=== PATIENT | male | born 1985 | race Caucasian/White ===

== ENCOUNTER 2019-05-31 02:53 | Inpatient (IN) | payer OTHER ==
[~2019-05-31] VITALS: Ht 175.3 cm; Wt 89.0 kg
[2019-05-31] MEDS ORDERED: ONDANSETRON ODT 4 MG ONE (03:13)
[2019-05-31] MEDS ORDERED: KETOROLAC 30 MG/1 ML ONE (03:13)
[2019-05-31 03:24] LABS: BASOPHILS # (AUTO) 0.01 x10^3/uL (0-0.1); BASOPHILS % (AUTO) 0 % (0-1); EOSINOPHILS # (AUTO) 0.11 x10^3/uL (0-0.4); EOSINOPHILS % (AUTO) 1 % (1-7); LYMPHOCYTES # (AUTO) 1.09 x10^3/uL (1-3.4); LYMPHOCYTES % (AUTO) 7 % (22-44); MD NO; MEAN CORPUSCULAR HEMOGLOBIN 31.7 pg (27.5-34.5); MEAN CORPUSCULAR HGB CONC 33.3 g/dL (33.2-36.2); MEAN CORPUSCULAR VOLUME 95.2 fL (81-97); MEAN PLATELET VOLUME 8.5 fL (7.4-10.4); MONOCYTES # (AUTO) 0.29 x10^3/uL (0.2-0.8); MONOCYTES % (AUTO) 2 % (2-9); NEUTROPHILS # (AUTO) 14.05 x10^3/uL (1.8-6.8); NEUTROPHILS % (AUTO) 90 % (42-75); PLATELET COUNT 198 x10^3/uL (130-400); RED BLOOD COUNT 4.85 x10^6/uL (4.38-5.82); RED CELL DISTRIBUTION WIDTH 12.9 % (9.4-14.8)
[2019-05-31] MEDS ORDERED: ONDANSETRON ODT 4 MG PO ONE (03:30)
[2019-05-31] MEDS ORDERED: KETOROLAC 30 MG/1 ML IM ONE (03:30)
[2019-05-31 03:36] LABS: ALANINE AMINOTRANSFERASE 32 U/L (12-78); ALBUMIN 4.4 g/dL (3.4-5.0); ANION GAP 9 mmol/L (5-15); CALCIUM 9.2 mg/dL (8.5-10.1); CHLORIDE 105 mmol/L (98-107); CREATININE 1.42 mg/dL (0.7-1.3)
[2019-05-31 03:39] LABS: ALKALINE PHOSPHATASE 64 U/L (45-117); BILIRUBIN,TOTAL 0.7 mg/dL (0.2-1.0); TOTAL PROTEIN 8.1 g/dL (6.4-8.2)
--- NOTE | 2019-05-31 04:53 | NUR ---
PT RESTING IN BED W/ OFFICERS AT BEDSIDE. SIDE RAILS UP X 2. PT STATES HE FEELS "MUCH BETTER." DISCUSSED W/ ED PROVIDER AND AWAITING POC
[2019-05-31] MEDS ORDERED: CEFTRIAXONE PMX 1GM/50ML 50 ML IV ONE (05:30)
[2019-05-31] MEDS ORDERED: METRONIDAZOLE PMX 500MG/100ML 100 ML IV ONE (05:30)
--- NOTE | 2019-05-31 05:32 | NUR ---
ED PROVIDER STATES NO NEED FOR BLOOD CULTURES PRIOR TO ABX.
[2019-05-31] MEDS ORDERED: METRONIDAZOLE PMX 500MG/100ML 100 ML ONE (05:33)
[2019-05-31] MEDS ORDERED: CEFTRIAXONE PMX 1GM/50ML 50 ML ONE (05:33)
--- NOTE | 2019-05-31 05:55 | NUR ---
UNSUCCESSFUL PIV TO RAC DRESSED W/ GAUZE AND TAPE. POSITIONAL IV INFUSING FIRST ROUND OF ABX AT THIS TIME.
--- NOTE | 2019-05-31 06:45 | NUR ---
GAVE REPORT TO BABAK ANDRADE AND AWAITING TRANSPORT TO THE FLOOR. Addendum: 05/31/19 at 0646 by MARCY MELISSA IN PROGRESS AT THIS TIME BY EMILY.
[2019-05-31] MEDS ORDERED: ONDANSETRON 2MG/ML, 2ML IVPush PRN (07:30)
[2019-05-31] MEDS ORDERED: CEFTRIAXONE PMX 2GM/50ML 50 ML IV SCH ×2 (07:30→17:30)
[2019-05-31] MEDS ORDERED: METRONIDAZOLE PMX 500MG/100ML 100 ML IV SCH (07:30)
[2019-05-31] MEDS ORDERED: ACETAMINOPHEN 325 MG TABLET PO PRN (07:30)
[2019-05-31] MEDS ORDERED: ONDANSETRON ODT 4 MG PO PRN (07:30)
[2019-05-31] MEDS: HEPARIN 5,000 UNITS/ML, 1ML SQ SCH ×3 (07:30→23:12)
[2019-05-31] MEDS ORDERED: KETOROLAC 30 MG/1 ML IV PRN (07:30)
[2019-05-31] MEDS: SODIUM CHLORIDE 0.9% 1,000 ML IV SCH ×2 (07:48→21:42)
[2019-05-31 08:18] VITALS: BP 123/79
[2019-05-31 10:51] VITALS: BP 138/64
[2019-05-31] MEDS ORDERED: no home meds (11:03)
[2019-05-31] MEDS: METRONIDAZOLE PMX 500MG/100ML 100 ML IV SCH ×2 (14:09→21:42)
[2019-05-31 14:39] VITALS: BP 128/78
[2019-05-31 18:41] VITALS: BP 128/80
[2019-06-01 01:46] VITALS: BP 110/69
[2019-06-01] MEDS ORDERED: CEFAZOLIN 1,000 MG ONE (04:25)
[2019-06-01] MEDS ORDERED: ROCURONIUM 10MG/ML,5ML ONE (04:25)
[2019-06-01] MEDS ORDERED: ONDANSETRON 2MG/ML, 2ML ONE (04:25)
[2019-06-01] MEDS ORDERED: SUCCINYLCHOLINE 20 MG/ML, 10ML ONE (04:25)
[2019-06-01] MEDS ORDERED: DEXAMETHASONE 4 MG/ML, 1ML ONE (04:25)
[2019-06-01] MEDS: METRONIDAZOLE PMX 500MG/100ML 100 ML IV SCH ×2 (06:21→14:44)
[2019-06-01 06:32] LABS: BASOPHILS # (AUTO) 0.05 x10^3/uL (0-0.1); BASOPHILS % (AUTO) 1 % (0-1); EOSINOPHILS # (AUTO) 0.18 x10^3/uL (0-0.4); EOSINOPHILS % (AUTO) 2 % (1-7); LYMPHOCYTES # (AUTO) 2.56 x10^3/uL (1-3.4); LYMPHOCYTES % (AUTO) 30 % (22-44); MD NO; MEAN CORPUSCULAR HEMOGLOBIN 31.8 pg (27.5-34.5); MEAN CORPUSCULAR HGB CONC 33.2 g/dL (33.2-36.2); MEAN CORPUSCULAR VOLUME 95.9 fL (81-97); MEAN PLATELET VOLUME 8.5 fL (7.4-10.4); MONOCYTES # (AUTO) 0.97 x10^3/uL (0.2-0.8); MONOCYTES % (AUTO) 11 % (2-9); NEUTROPHILS # (AUTO) 4.88 x10^3/uL (1.8-6.8); NEUTROPHILS % (AUTO) 56 % (42-75); PLATELET COUNT 200 x10^3/uL (130-400); RED BLOOD COUNT 4.52 x10^6/uL (4.38-5.82); RED CELL DISTRIBUTION WIDTH 13.2 % (9.4-14.8)
[2019-06-01 06:44] LABS: ALANINE AMINOTRANSFERASE 31 U/L (12-78); ALBUMIN 3.6 g/dL (3.4-5.0); ANION GAP 5 mmol/L (5-15); CALCIUM 8.6 mg/dL (8.5-10.1); CHLORIDE 107 mmol/L (98-107); CREATININE 1.26 mg/dL (0.7-1.3)
[2019-06-01 06:46] LABS: ALKALINE PHOSPHATASE 60 U/L (45-117); BILIRUBIN,TOTAL 0.9 mg/dL (0.2-1.0); TOTAL PROTEIN 6.8 g/dL (6.4-8.2)
[2019-06-01 07:04] VITALS: BP 126/81
[2019-06-01] MEDS: HEPARIN 5,000 UNITS/ML, 1ML SQ SCH ×2 (07:30→21:12)
[2019-06-01] MEDS ORDERED: PROPOFOL 50 ML ONE (08:39)
[2019-06-01] MEDS ORDERED: MIDAZOLAM 1 MG/ML, 2ML ONE (08:40)
[2019-06-01] MEDS ORDERED: FENTANYL PF 250 MCG/5ML ONE (08:40)
[2019-06-01] MEDS ORDERED: EPINEPHRINE 1 MG/ML, 1ML ONE (09:03)
[2019-06-01] MEDS ORDERED: BUPIVACAINE/PF 0.5% ONE (09:03)
[2019-06-01] MEDS ORDERED: EPHEDRINE 50 MG/ML, 1ML IVPush PRN (10:30)
[2019-06-01] MEDS ORDERED: ONDANSETRON ODT 8 MG PO PRN (10:30)
[2019-06-01] MEDS ORDERED: MIDAZOLAM 1 MG/ML, 2ML IV PRN (10:30)
[2019-06-01] MEDS ORDERED: DIAZEPAM 5 MG/ML, 2ML IVPush PRN (10:30)
[2019-06-01] MEDS ORDERED: FENTANYL PF 100 MCG/2ML IV PRN (10:30)
[2019-06-01] MEDS ORDERED: ONDANSETRON 2MG/ML, 2ML IV PRN (10:30)
[2019-06-01] MEDS ORDERED: EPHEDRINE 50 MG/ML, 1ML IM PRN (10:30)
[2019-06-01] MEDS ORDERED: MEPERIDINE/PF 25MG/ML,1ML IVPush PRN (10:30)
[2019-06-01] MEDS ORDERED: DIPHENHYDRAMINE 50 MG/ML, 1ML IVPush PRN (10:30)
[2019-06-01] MEDS ORDERED: MORPHINE SULFATE 4 MG/ML, 1ML IVPush PRN (10:30)
[2019-06-01] MEDS ORDERED: OXYcodone 5 MG/5 ML ORAL.SOL UDC PO PRN (10:30)
[2019-06-01] MEDS ORDERED: PROMETHAZINE 25 MG/ML, 1ML IV PRN (10:30)
[2019-06-01] MEDS ORDERED: ONDANSETRON 2MG/ML, 2ML IVPush PRN (12:00)
[2019-06-01] MEDS ORDERED: LACTATED RINGERS 1,000 ML IV SCH (12:00)
[2019-06-01] MEDS: MORPHINE SULFATE 4 MG/ML, 1ML IVPush PRN ×3 (12:11→14:53)
[2019-06-01 12:13] VITALS: BP 138/93
[2019-06-01 12:28] LABS: INTERNATIONAL NORMALIZED RATIO 1.08 (0.93-1.1); PROTHROMBIN TIME 11.3 Seconds (9.6-11.5)
[2019-06-01] MEDS ORDERED: SODIUM CHLORIDE 0.9% 1,000 ML IV SCH (12:30)
[2019-06-01 14:46] VITALS: BP 137/82
[2019-06-01 18:30] VITALS: BP 121/78
[2019-06-01] MEDS: OXYcodone/APAP 5/325MG TABLET PO PRN ×2 (18:44→19:44)
[2019-06-01] MEDS: AMOXICILLIN 500 MG CAPSULE PO SCH (21:13)
[2019-06-01] MEDS: metroNIDAZOLE 500 MG TABLET PO SCH (21:13)
[2019-06-02 00:05] VITALS: BP 123/73
[2019-06-02] MEDS: OXYcodone/APAP 5/325MG TABLET PO PRN ×3 (00:12→09:10)
[2019-06-02] MEDS: metroNIDAZOLE 500 MG TABLET PO SCH ×2 (03:05→09:10)
[2019-06-02 03:39] VITALS: BP 104/59
[2019-06-02] MEDS: HEPARIN 5,000 UNITS/ML, 1ML SQ SCH (05:17)
[2019-06-02 05:54] LABS: BASOPHILS # (AUTO) 0.03 x10^3/uL (0-0.1); BASOPHILS % (AUTO) 0 % (0-1); EOSINOPHILS # (AUTO) 0.01 x10^3/uL (0-0.4); EOSINOPHILS % (AUTO) 0 % (1-7); LYMPHOCYTES # (AUTO) 1.89 x10^3/uL (1-3.4); LYMPHOCYTES % (AUTO) 15 % (22-44); MD NO; MEAN CORPUSCULAR HEMOGLOBIN 31.4 pg (27.5-34.5); MEAN CORPUSCULAR HGB CONC 33.2 g/dL (33.2-36.2); MEAN CORPUSCULAR VOLUME 94.5 fL (81-97); MEAN PLATELET VOLUME 8.4 fL (7.4-10.4); MONOCYTES # (AUTO) 1.28 x10^3/uL (0.2-0.8); MONOCYTES % (AUTO) 10 % (2-9); NEUTROPHILS # (AUTO) 9.36 x10^3/uL (1.8-6.8); NEUTROPHILS % (AUTO) 75 % (42-75); PLATELET COUNT 183 x10^3/uL (130-400); RED BLOOD COUNT 4.48 x10^6/uL (4.38-5.82); RED CELL DISTRIBUTION WIDTH 13.1 % (9.4-14.8)
[2019-06-02 05:55] LABS: ANION GAP 6 mmol/L (5-15); CALCIUM 8.3 mg/dL (8.5-10.1); CHLORIDE 102 mmol/L (98-107); CREATININE 1.21 mg/dL (0.7-1.3)
[2019-06-02] MEDS ORDERED: SODIUM CHLORIDE 0.9% 1,000 ML IV SCH (07:27)
[2019-06-02 08:34] VITALS: BP 114/75
[2019-06-02] MEDS: AMOXICILLIN 500 MG CAPSULE PO SCH (09:10)
[2019-06-02] MEDS ORDERED: ACET325T26 PO (10:09)
[2019-06-02] MEDS ORDERED: TRAM50TA2 PO (11:57)
[2019-06-02 12:15] VITALS: BP 121/84
== END 2019-06-02 12:36 | disposition home or self-care (01) | DRG 853 ==
LOC: ED 04:20 → EDIP 06:08 → EDBD 06:08 → 4NE 07:00
PROVIDERS: ADMIT Internal Medicine; ATTEND Internal Medicine
PROC: 0FT44ZZ Resection of Gallbladder, Percutaneous Endoscopic Approach (ICD-10-PCS; principal; 2019-05-31)
DX: A41.9 Sepsis, unspecified organism (principal); N17.0 Acute kidney failure with tubular necrosis; K80.00 Calculus of gallbladder with acute cholecystitis without obstruction; K66.0 Peritoneal adhesions (postprocedural) (postinfection); I10 Essential (primary) hypertension; F17.200 Nicotine dependence, unspecified, uncomplicated; E66.9 Obesity, unspecified; Z68.29 Body mass index [BMI] 29.0-29.9, adult; Z82.49 Family history of ischemic heart disease and other diseases of the circulatory system
CPT/HCPCS: 36415; 96374; 96375; 99285; S0020; 76700; 80048; 80053; 83690; 85025; 85610; 88304; 93005; G0378; J0171; J0690; J0696; J1100; J1644; J1885; J2250; J2405; J2704; J3010; Q0162; J0330; J2270; J7030